=== PATIENT | female | born 1940 | race Caucasian/White ===

== ENCOUNTER → 2024-09-17 14:06 | Outpatient (BNVA) | payer MEDICARE, OTHER, SELFPAY | PROVIDERS: Visit Provider Dermatology | DX: L82.1 Other seborrheic keratosis (principal); I78.8 Other diseases of capillaries; L57.8 Other skin changes due to chronic exposure to nonionizing radiation; L57.0 Actinic keratosis | CPT/HCPCS: 17000; 99213 ==

== ENCOUNTER → 2025-09-08 09:56 | Outpatient (BNVA) | payer MEDICARE, OTHER, SELFPAY | PROVIDERS: Visit Provider Dermatology | DX: L82.1 Other seborrheic keratosis (principal); I78.8 Other diseases of capillaries; L57.8 Other skin changes due to chronic exposure to nonionizing radiation; D18.01 Hemangioma of skin and subcutaneous tissue; I83.92 Asymptomatic varicose veins of left lower extremity; L84 Corns and callosities; D48.5 Neoplasm of uncertain behavior of skin | CPT/HCPCS: 11102; 99213 ==